=== PATIENT | male | born 1960 | race Hispanic/Latino ===

== ENCOUNTER 2018-02-25 09:10 | Emergency (ER) | payer BC ==
[2018-02-25 10:37] LABS: Basophils % (Auto) 0.4 % (0.0-1.8); Eosinophils # (Auto) 0.1 K/mm3 (0.0-0.4); Eosinophils % (Auto) 1.2 % (0.0-4.3); Hematocrit 39.4 % (35.5-45.6); Lymphocytes # (Auto) 1.3 K/mm3 (1.2-5.4); Lymphocytes % (Auto) 16.7 % (13.4-35.0); Mean Corpuscular HGB Conc 33 % (32-34); Mean Corpuscular Hemoglobin 33 pg (28-32); Mean Corpuscular Volume 99 fl (84-94); Monocytes # (Auto) 0.9 K/mm3 (0.0-0.8); Platelet Count 200 K/mm3 (140-440); Red Blood Count 3.97 M/mm3 (3.65-5.03); Red Cell Distribution Width 15.4 % (13.2-15.2)
[2018-02-25 11:04] LABS: BUN/Creatinine Ratio 38; Blood Urea Nitrogen 23 mg/dL (9-20); Calcium 9.8 mg/dL (8.4-10.2); Hemolysis Index 2
[2018-02-25 15:18] VITALS: BP 152/77
--- NOTE | 2018-02-25 18:05 | Emergency Department Report ---
ED General Adult HPI - General Chief complaint: Back Pain/Injury Stated complaint: BACK PAIN Time Seen by Provider: 02/25/18 16:16 Source: patient Mode of arrival: Ambulatory Limitations: No Limitations - History of Present Illness Initial comments: This is a 57-year-old male with a history of hepatitis C and liver cirrhosis who states that over the last 6 weeks he has had difficulty eating and experiences pain in his mid back anytime he eats. He states now the pain is constant and extreme. He is seeing a dj instructor at this time. He states that he has taken Tylenol and has been using hot baths to try to get some relief but it is no longer effective. As he can't eat or sleep at this time. He was told that he has tumors on his liver. They do not know if it is cancer at this time. He was sent to the emergency room for pain management. -: month(s) (1.5) Location: back, abdomen Radiation: non-radiation Severity scale (0 -10): 10 Quality: aching Consistency: constant Improves with: none Worsens with: none Associated Symptoms: denies other symptoms Treatments Prior to Arrival: other (Tylenol) - Related Data Previous Rx's Medication Instructions Recorded Last Taken Type HYDROcodone/APAP 10-325 [[place] 1 each PO Q8HR PRN #10 tablet 02/25/18 Unknown Rx 10/325] Allergies Allergy/AdvReac Type Severity Reaction Status Date / Time No Known Allergies Allergy Unverified 02/25/18 09:25 ED Review of Systems ROS: Stated complaint: BACK PAIN Other details as noted in HPI Comment: All other systems reviewed and negative Constitutional: see HPI Eyes: as per HPI ENT: as per HPI Respiratory: see HPI Cardiovascular: as per HPI Endocrine: see HPI Gastrointestinal: as per HPI Genitourinary: as per HPI Musculoskeletal: as per HPI Skin: as per HPI Neurological: as per HPI Psychiatric: as per HPI Hematological/Lymphatic: as per HPI ED Past Medical Hx - Past Medical History Additional medical history: HEP C, CIRRHOSIS - Surgical History Past Surgical History?: No - Social History Smoking Status: Current Every Day Smoker Substance Use Type: None - Medications Home Medications: Home Medications Medication Instructions Recorded Confirmed Last Taken Type HYDROcodone/APAP 10-325 [[place] 1 each PO Q8HR PRN #10 tablet 02/25/18 Unknown Rx 10/325] ED Physical Exam - General Limitations: No Limitations General appearance: alert, in no apparent distress - Head Head exam: Present: atraumatic - Eye Eye exam: Present: normal appearance, PERRL, EOMI - ENT ENT exam: Present: normal exam - Neck Neck exam: Present: normal inspection - Respiratory Respiratory exam: Present: normal lung sounds bilaterally. Absent: respiratory distress, wheezes, rales, rhonchi - Cardiovascular Cardiovascular Exam: Present: regular rate, normal rhythm, normal heart sounds - GI/Abdominal GI/Abdominal exam: Present: soft, tenderness (generalized), normal bowel sounds - Extremities Exam Extremities exam: Present: normal inspection, full ROM - Back Exam Back exam: Present: normal inspection, tenderness (lower aspect of the lower thorax bilaterally without spinous process tenderness) - Neurological Exam Neurological exam: Present: alert, oriented X3, CN II-XII intact - Psychiatric Psychiatric exam: Present: normal affect, normal mood - Skin Skin exam: Present: warm, dry, intact, normal color ED Course Vital Signs 02/25/18 02/25/18 02/25/18 09:25 15:17 15:18 Temperature 97.7 F 98.7 F Pulse Rate 71 74 Respiratory 18 16 16 Rate Blood Pressure 145/66 Blood Pressure 152/77 [Left] O2 Sat by Pulse 99 97 97 Oximetry - Reevaluation(s) Reevaluation #1: 02/25/18 18:11 Trying to contact his liver specialist. Will give morphine and zofran. 02/25/18 19:29 I spoke to his on-call GI doctor. They said to give him some pain medication and send him home and follow-up with their offices. I will give him [place] today and explained that we do not routinely do pain management in the emergency room and that he will need to get a primary care doctor or see pain management. He expresses understanding. ED Medical Decision Making - Lab Data Result diagrams: 02/25/18 10:18 02/25/18 10:18 Critical care attestation.: If time is entered above; I have spent that time in minutes in the direct care of this critically ill patient, excluding procedure time. ED Disposition Clinical Impression: Back pain Qualifiers: Back pain location: thoracic back pain Chronicity: chronic Back pain laterality : bilateral Qualified Code(s): M54.6 - Pain in thoracic spine; G89.29 - Other chronic pain Liver cirrhosis Qualifiers: Hepatic cirrhosis type: other cirrhosis Qualified Code(s): K74.69 - Other cirrhosis of liver Disposition: DC-01 TO HOME OR SELFCARE Is pt being admited?: No Does the pt Need Aspirin: No Condition: Stable Instructions: Cirrhosis (ED), Ascites (ED) Additional Instructions: Rest, fluids, watch for worsening, new symptoms, follow up with your liver specialist, return as needed. Prescriptions: HYDROcodone/APAP 10-325 [[place] 10/325] 1 each PO Q8HR PRN #10 tablet PRN Reason: Pain Referrals: PRIMARY CARE, [Primary Care Provider] - 3-5 Days
[2018-02-25] MEDS ORDERED: MORPHINE IV ONE (18:12)
[2018-02-25] MEDS ORDERED: ZOFRAN IV ONE (18:13)
[2018-02-25 18:52] LABS: INR 1.01 (0.87-1.13)
[2018-02-25 18:53] LABS: Partial Thromboplastin Time 27.2 Sec. (24.2-36.6)
[2018-02-25 19:26] LABS: Albumin 3.6 g/dL (3.9-5); Bilirubin,Direct 0.7 mg/dL (0-0.2)
== END 2018-02-25 20:02 | disposition home or self-care (01) ==
LOC: ED 09:10
DX: M54.6 Pain in thoracic spine (principal); K74.69 Other cirrhosis of liver; Z86.19 Personal history of other infectious and parasitic diseases; F17.200 Nicotine dependence, unspecified, uncomplicated
CPT/HCPCS: 36415; 80048; 80074; 82140; 82150; 83690; 85025; 85610; 85730; 96374; 96375; 99283; J2270; J2405

== ENCOUNTER 2018-02-25 12:25 | Outpatient (CLI) | payer BC ==
--- NOTE | 2018-02-25 15:24 | Cat Scan Report ---
FINAL REPORT EXAM: CT CHEST W CON HISTORY: HEPATOCELLULAR CARCINOMA TECHNIQUE: CT of chest with IV contrast. Coronal and sagittal reconstructed images provided. PRIORS: None currently available. FINDINGS: Minimal emphysema. No pneumothorax. No distinct consolidation. No effusion. No pulmonary nodules. Major branch vessels are intact. Mild aortic atherosclerotic disease. No aneurysm or dissection. Main pulmonary artery is unremarkable. Mild cardiomegaly. No pericardial effusion. Coronary artery disease identified. Prominent pericardial lymph node on series 2:98 measures 14.8 x 7.5 mm. Subcentimeter mildly prominent axillary lymph nodes identified. Prominent right axillary lymph node in short axis diameter measures 6.6 mm. Prominent left axillary lymph node in short axis diameter measures 7.2 mm. Prominent single mediastinal lymph node measures 10.5 x 27.2 mm. Other lymph nodes in the mediastinum are subcentimeter and 1 of the larger lymph nodes at the AP window measures 9.4 mm. No definitive mass. Hilar regions are unremarkable. Images of the esophagus are unremarkable. Partially imaged liver demonstrates heterogeneous low-attenuation. Dilated intrahepatic biliary ducts identified. Lobulated contour suggests cirrhosis. Splenomegaly identified. Varices around the GE junction and splenic hilum may be present. Ascites is partially imaged. Partially imaged prominent periportal lymph nodes identified. No suspicious osseous lesions on this limited examination of the skeleton. Metastatic disease better evaluated with bone scan. Degenerative changes are present in the spine. IMPRESSION: Prominent axillary, mediastinal, pericardial, and periportal lymph nodes may be reactive or congenital. Reactive adenopathy suspected. Minimal emphysema. Cardiomegaly. Heterogeneous liver with lobulated contour suggests cirrhosis. Ascites, splenomegaly, and varices suggest portal hypertension. Prominent periportal lymph nodes may be reactive. Hepatic protocol CT may be helpful for further evaluation if clinically indicated.
== END 2018-02-25 12:26 | disposition home or self-care (01) ==
LOC: CT 12:25
DX: C22.0 Liver cell carcinoma (principal); J43.9 Emphysema, unspecified; I70.0 Atherosclerosis of aorta; I51.7 Cardiomegaly; J98.4 Other disorders of lung; R16.1 Splenomegaly, not elsewhere classified; R18.8 Other ascites
CPT/HCPCS: 71260; Q9967